=== PATIENT | female | born 1985 | race Caucasian/White ===

== ENCOUNTER 2023-03-29 10:35 | Outpatient (AMB) | payer MEDICARE, MEDICAID, SELFPAY ==
--- NOTE | 2023-03-29 10:45 | MHC.OFFVIS ---
Intake Vital Signs 03/29/23 10:49 Height 5 ft 5 in Weight 463 lb BMI 77.0 BP 143/96 H Blood Pressure Location Rt radial Position Sitting Respiration 20 Pulse 93 Pulse Source Pulse Oximeter Pulse Oximetry (%) 97 Oxygen Delivery Method Room Air Intake Visit Reasons: Low Back Pain, Unspecified - Confirmed Allergies acetaminophen [From Vicodin] Adverse Reaction (Severe, Verified 03/14/23 17:28) Vomiting bee pollen Adverse Reaction (Severe, Verified 03/14/23 17:28) Anaphylaxis buprenorphine [From Subutex] Adverse Reaction (Severe, Verified 03/14/23 17:28) Vomiting hydrocodone [From Vicodin] Adverse Reaction (Severe, Verified 03/14/23 17:28) Vomiting naloxone [From Suboxone] Adverse Reaction (Severe, Verified 03/14/23 17:28) Vomiting shellfish derived Adverse Reaction (Severe, Verified 03/14/23 17:28) Unknown tree nut Adverse Reaction (Severe, Verified 03/14/23 17:28) Anaphylaxis venom-honey bee Adverse Reaction (Severe, Verified 03/14/23 17:28) Anaphylaxis HPI HPI Comments History of Present Illness Details Linda is a very pleasant 29-year-old female who presents to the office today for evaluation management of her chronic lower back pain. She reports she has she has been suffering with pain to her lower back for many years. 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 She has been taking oxycodone extended-release and Lyrica for pain. Pain is not well controlled, she used to be on immediate release oxycodone but was admittedly overusing therefore her doctor discontinued it and declines to restart her on it. She declines use of topical medications or muscle relaxers. She is unable to use nonsteroidal anti-inflammatory medications due to current use of Eliquis for DVT prophylaxis. Patient will be starting once weekly physical therapy tomorrow. Prior to this she was limited with activity and getting out of bed to commode so she was not able to tolerate physical therapy. She is currently on Ozempic for weight loss, weight today 463 lbs. Patient planning weight loss surgery, she is currently enrolled in the bariatric program at [facility]. Patient denies any recent imaging of her back. Patient endorses pain across her lower back with spasms. Denies radiation of the pain down either leg. Denies red flag symptoms including new loss of bowel, bladder or saddle anesthesia. She also reports numbness aching to both her feet, she is diabetic. She reports numbness pins and needles to the left lower arm. She has not had any nerve conduction studies. Per PCP note patient had elevated EMILIA, she has not been seen by Rheumatology to rule out SLE. Pain today is rated as a 6/10, constant, worse in the mornings, during the day in the evenings. In terms of muscle damage condition is described as aching, spasming, hot, burning, stabbing, sharp, shooting, tiring, cramping, squeezing, numb, throbbing, tingling, pins and needles Pain is negatively impacting patient's enjoyment of life, general activity, mood, normal work, recreational activities, relationship with people, sleep, walking, bathing and dressing. Past medical history significant for DVT currently on Eliquis, depression, chronic pain syndrome, morbid obesity, diabetes, hypothyroid, mixed hyperlipidemia, anemia, anxiety, chronic use of opioid medications. [facility] Medical History (Updated 03/29/23 @ 14:27 by Lindsey Ac, LUMBER TRIMMER, UNDERWRITING SALES REPRESENTATIVE) Chronic [id number] syndrome Muscle spasms of neck Allergic rhinitis with asthma without status asthmaticus Opioid dependence Panic disorder with agoraphobia and severe panic attacks Organic sleep apnea Chronic pain syndrome Constipation Cervical paraspinal muscle spasm Recurrent major depressive episodes Mixed hyperlipidemia Bee sting-induced anaphylaxis Rhinitis due to pollen Bronchitis Fracture of tooth Cramps of lower extremity Diabetes mellitus Anemia Low back pain, unspecified Other specified abnormal immunological findings in serum Type 2 diabetes mellitus without complications Other chronic pain Obesity Anxiety Asthma Long-term current use of opiate analgesic Hypothyroidism, unspecified Review of Systems Const All systems reviewed & are unremarkable except as noted in HPI and below Physical Exam Vital Signs: Last Vital Signs Pulse 93 03/29/23 10:49 Resp 20 03/29/23 10:49 BP 143/96 H 03/29/23 10:49 Pulse Ox 97 03/29/23 10:49 Oxygen Delivery Method Room Air 03/29/23 10:49 BMI result Body Mass Index 77.0 General: awake, alert, oriented. Answers questions appropriately. Fully engaged in examination. Obese. Skin: warm, dry, intact HEENT: Normocephalic. Hearing intact. Cardiac: External chest normal in appearance. Respiratory: No cough, audible wheezing or stridor. Abdomen: without gross distension. MS: No obvious swelling or deformities. Able to transition from sit to stand unassisted. Ambulates with bilaterally normal heel strike and toe off Tender to palpation lumbar paraspinal muscles and midline lumbar vertebrae SLR with and without dorsiflexion negative bilaterally Spurling positive bilateral Provocative testing limited secondary to body habitus Neurological: Oriented to person, place, time and situation. Thought process intact. Psychiatric: Appropriate mood and affect. Good judgment and insight. Assessment & Plan Assessment & Plan (1) Lumbar spondylosis: Code(s): M47.816 - Spondylosis without myelopathy or radiculopathy, lumbar region (2) Lumbar paraspinal muscle spasm: Code(s): M62.830 - Muscle spasm of back (3) Peripheral neuropathy: Comment: Bilateral Code(s): G62.9 - Polyneuropathy, unspecified (4) Paresthesia of left arm: Code(s): R20.2 - Paresthesia of skin (5) Chronic pain syndrome: Code(s): G89.4 - Chronic pain syndrome Plan Linda is a very pleasant 37-year-old female who presented to the office today for evaluation management of her chronic lower back pain. History, physical exam and provocative testing consistent with lumbar spondylosis without radiculopathy or myelopathy. Provocative testing was limited secondary to patient's physical limitations. X-ray lumbar spine ordered for further evaluation. To complete before next visit. EMG ordered to evaluate for left arm and bilateral lower extremity peripheral paresthesia/neuropathy. Referral placed to rheumatology for evaluation management of her polyarthropathy. History of elevated EMILIA, concern for SLE. Continue with weight loss journey. Continue with plan for bariatric surgery. Continue with plan for physical therapy. Baclofen 5 mg p.o. b.i.d. as needed for muscle spasms. Lidocaine 5% topical patches as prescribed. Follow-up in the office in 1 month to evaluate effectiveness of muscle relaxers with physical therapy and review of imaging. Discussed options for treatment including diagnostic testing, therapeutic injections, peripheral nerve stimulator, RFA and more permanent neuromodulation. Call has been placed to determine weight limit of procedure bed prior to booking any interventional procedures. Patient will follow-up to further discuss after trial of physical therapy and muscle relaxers. If she does not find any relief with these will plan for bilateral diagnostic L3-L4 DRL5 MBBs with local anesthetic providing bed can accommodate her weight. All questions an concerns have been answered, patient agrees with the plan. Follow-up in 1 month, sooner if needed. Orders: Orders XR lumbar spine 4V min Today M47.816 - Spondylosis without myelopathy or radiculopathy, lumbar region, M54.50 - Low back pain, unspecified NE electromyogram (EMG) Today G62.9 - Polyneuropathy, unspecified, R20.2 - Paresthesia of skin Referrals Rheumatology Referral M25.50 - Pain in unspecified joint Medications: New baclofen 5 mg PO BID 60 tabs 0RF lidocaine 5% leave on most painful area for up to 12 hrs 2 patches topical DAILY 60 ea 3RF Coding Level of Care Code New Pt Level 4 (06267) Diagnoses Lumbar spondylosis M47.816 Lumbar paraspinal muscle spasm M62.830 Peripheral neuropathy G62.9 Paresthesia of left arm R20.2 Chronic pain syndrome G89.4
[2023-03-29 10:49] VITALS: BP 143/96; PULSE 93; RESP 20; O2SAT 97; BMI 77.0
== END 2023-03-29 11:38 | disposition home or self-care (01) ==
PROVIDERS: PCP Nurse Practitioner Family; Referring Provider Nurse Practitioner Family; Visit Provider Registered Nurse Emergency
DX: M47.816 Spondylosis without myelopathy or radiculopathy, lumbar region (principal); M62.830 Muscle spasm of back; G62.9 Polyneuropathy, unspecified; R20.2 Paresthesia of skin; G89.4 Chronic pain syndrome
CPT/HCPCS: 99204

== ENCOUNTER → 2023-03-29 10:35 | Outpatient (BNVA) | payer MEDICARE, MEDICAID, SELFPAY | PROVIDERS: PCP Nurse Practitioner Family; Referring Provider Nurse Practitioner Family; Visit Provider Registered Nurse Emergency | DX: M47.816 Spondylosis without myelopathy or radiculopathy, lumbar region (principal); M62.830 Muscle spasm of back; G62.9 Polyneuropathy, unspecified; R20.2 Paresthesia of skin; G89.4 Chronic pain syndrome | CPT/HCPCS: 99202 ==

== ENCOUNTER 2023-05-04 11:06 | Outpatient (REF) | payer MEDICARE, MEDICAID, SELFPAY ==
--- NOTE | 2023-05-04 11:10 | EMG_ITS ---
Chief complaint: Paresthesias on both feet and left hand History of prolonged hospitalization due to COVID, diabetes, DVT on Eliquis Reason for referral: Evaluate for neuropathy Referred by: Lindsey Ac NP Procedure done: Bilateral lower extremity and left upper extremity NCS/EMG Precautions and/or limitations: Patient on Eliquis, deferred deep muscles such as paraspinals. Technical difficulties during NCS due to habitus. The limb temperature was monitored continuously and remained between 32-36 degrees C during the performance of the NCS. Nerve Conduction Studies Anti Sensory Summary Table ?Stim Site NR Onset (ms) Norm Onset (ms) Peak (ms) Norm Peak (ms) O-P Amp (?V) Norm O-P Amp Site1 Site2 Delta-0 (ms) Dist (cm) Navneet (m/s) Norm Navneet (m/s) Left Median Anti Sensory (2nd Digit) Wrist ? 2.5 3.3 <3.6 0.8 >10 Wrist 2nd Digit 2.5 14.0 56 Left Radial Anti Sensory (Thumb) Forearm ? 2.6 3.0 <3.1 4.6 Forearm Thumb 2.6 0.0 Left Sural Anti Sensory (Lat Mall) Calf NR <4.0 >5.0 Calf Lat Mall 14.0 Right Sural Anti Sensory (Lat Mall) Calf NR <4.0 >5.0 Calf Lat Mall 14.0 Left Ulnar Anti Sensory (5th Digit) Wrist ? 2.5 3.5 <3.7 11.3 >15.0 Wrist 5th Digit 2.5 14.0 56 Motor Summary Table ?Stim Site NR Onset (ms) Norm Onset (ms) O-P Amp (mV) Norm O-P Amp iAmp (mV) Amp (1st) (%) Site1 Site2 Delta-0 (ms) Dist (cm) Navneet (m/s) Norm Navneet (m/s) Left Median Motor (Abd Poll Brev) Wrist ? 3.7 <3.9 15.7 >4.5 18.3 100.0 Elbow Wrist 4.7 21.0 45 >45 Elbow ? 8.4 14.7 17.2 93.6 Left Peroneal Motor (Ext Dig Brev) Ankle NR <4.0 >2.5 Ankle Ext Dig Brev 0.0 B Fib NR B Fib Ankle 0.0 >40 Right Peroneal Motor (Ext Dig Brev) Ankle NR <4.0 >2.5 Ankle Ext Dig Brev 0.0 Right Peroneal TA Motor (Tib Ant) Fib Head ? 4.5 <4.2 1.9 2.3 100.0 Fib Head Tib Ant 4.5 0.0 Poplit NR <5.7 Poplit Fib Head 0.0 >40.5 Left Tibial Motor (Abd Richey Brev) Ankle ? 5.6 <5 2.6 >2.5 2.7 100.0 Ankle Abd Richey Brev 5.6 0.0 Knee ? 16.5 1.2 1.4 46.2 Knee Ankle 10.9 49.0 45 >40 Right Tibial Motor (Abd Richey Brev) Ankle ? 6.7 <5 2.7 >2.5 2.9 100.0 Ankle Abd Richey Brev 6.7 0.0 Knee NR Knee Ankle 0.0 >40 Left Ulnar Motor (Abd Dig Minimi) Wrist ? 2.8 <3.0 10.8 >5 12.3 100.0 B Elbow Wrist 3.7 17.0 46 >45 B Elbow ? 6.5 9.9 11.7 91.7 A Elbow B Elbow 2.1 10.0 48 >45 A Elbow ? 8.6 9.2 10.8 85.2 EMG ?Side Muscle Nerve Root Ins Act Fibs Psw Amp Dur Poly Recrt Int Pat Comment Left 1stDorInt Ulnar C8-T1 Nml Nml Nml Nml Nml 0 Nml Complete Left FlexCarRad Median C6-7 Nml Nml Nml Nml Nml 0 Nml Complete Left Biceps Musculocut C5-6 Nml Nml Nml Nml Nml 0 Nml Complete Left Triceps Radial C6-7-8 Nml Nml Nml Nml Nml 0 Nml Complete Left Deltoid Axillary C5-6 Nml Nml Nml Nml Nml 0 Nml Complete Right AbdHallucis MedPlantar S1-2 Nml Nml Nml Nml Nml 0 Nml Complete Right AntTibialis Dp Br Peron L4-5 Nml Nml Nml Nml Nml 0 Nml Complete Right MedGastroc Tibial S1-2 Nml Nml Nml Nml Nml 0 Nml Complete Right VastusMed Femoral L2-4 Nml Nml Nml Nml Nml 0 Nml Complete Right Peroneus Long Sup Br Peron L5-S1 Nml Nml Nml Nml Nml 0 Nml Complete Left AbdHallucis MedPlantar S1-2 Incr 1+ Nml Nml Nml 0 Nml Complete Left AntTibialis Dp Br Peron L4-5 Nml Nml Nml Nml Nml 0 Nml Complete Left MedGastroc Tibial S1-2 Nml Nml Nml Nml Nml 0 Nml Complete Left VastusMed Femoral L2-4 Nml Nml Nml Nml Nml 0 Nml Complete Left Peroneus Long Sup Br Peron L5-S1 Nml Nml Nml Nml Nml 0 Nml Complete FINDINGS: Could not obtain responses from right peroneal nerve, recording EDB muscle. When recording TA muscle, small amplitude seen distally and could not obtain response proximally. Right tibial nerve showed small amplitude distally and prolonged distal latency; but could not obtain proximally. Could not obtain responses from left peroneal nerve. Left tibial nerve showed small amplitudes, prolonged distal latency, but normal conduction velocity. Question presence of temporal dispersion. Could not obtain responses from bilateral sural nerves. Left median sensory nerve and ulnar sensory nerve both showed normal peak latencies but small amplitude. All other nerves tested on left upper extremity were within normal. Concentric needle EMG was performed in selected muscles of the bilateral lower extremity and left upper extremity. Study revealed signs of electric abnormalities as shown in the table below. Left AH showed increased insertional activity, PSWs and fibrillations. No other denervation seen on more proximal muscles. IMPRESSION: 1. This is an abnormal study. 2. There is electrodiagnostic findings suggestive for distal symmetric sensorimotor polyneuropathy, axonal and demyelinating features. 3. There is no definite electrodiagnostic evidence for median neuropathy, ulnar neuropathy, brachial plexopathy, or cervical radiculopathy on left upper extremity; or lumbar plexopathy or radiculopathy on lower extremities. 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 Thank you for your kind referral. Fatoumata Brar MD, ADDY Board Certified, [place] Board of Physical Medicine and Rehabilitation (ABPMR) Board Certified, [place] Board of Electrodiagnostic Medicine (ABEM) CODIN [id number] x [address] [facility]
== END 2023-05-04 11:07 | disposition home or self-care (01) ==
LOC: HO.NEURO 11:06
PROVIDERS: PCP Nurse Practitioner Family; Visit Provider Registered Nurse Emergency
DX: R20.2 Paresthesia of skin (principal); G62.9 Polyneuropathy, unspecified
CPT/HCPCS: 95886; 95912

== ENCOUNTER → 2023-05-04 11:10 | Outpatient (BNV) | payer MEDICARE, MEDICAID, SELFPAY | PROVIDERS: PCP Nurse Practitioner Family; Visit Provider Physical Medicine & Rehabilitation | DX: G62.89 Other specified polyneuropathies (principal); M79.671 Pain in right foot; M79.672 Pain in left foot; M79.642 Pain in left hand | CPT/HCPCS: 95886; 95912 ==

== ENCOUNTER 2023-05-08 10:48 | Outpatient (REF) | payer MEDICARE, MEDICAID, SELFPAY ==
--- NOTE | ~2023-05-08 | XR_ITS ---
EXAMINATION: XR lumbar spine 4V min CLINICAL INFORMATION: Reason for Exam M47.816 - Spondylosis without myelopathy or radiculopathy, lumbar region COMPARISON: None TECHNIQUE: 5 views of the lumbar spine FINDINGS: 5 nonrib-bearing lumbar-type vertebral bodies. Vertebral body heights are maintained. Alignment is maintained. Minimal degenerative change and small anterior disc osteophyte complexes. Disc space heights are maintained. Paravertebral soft tissues are unremarkable. XR/XR lumbar spine 4V min IMPRESSION: Mild spondylosis of the lumbar spine, as above detailed.
== END 2023-05-08 10:49 | disposition home or self-care (01) ==
LOC: HO.XRAY 10:48
PROVIDERS: PCP Nurse Practitioner Family; Visit Provider Registered Nurse Emergency
DX: M47.816 Spondylosis without myelopathy or radiculopathy, lumbar region (principal); M54.50 Low back pain, unspecified
CPT/HCPCS: 72110

== ENCOUNTER 2023-05-10 10:50 | Outpatient (AMB) | payer MEDICARE, MEDICAID, SELFPAY ==
[2023-05-10 10:57] VITALS: BP 160/56; PULSE 87; O2SAT 96; BMI 73.9
--- NOTE | 2023-05-10 10:57 | A.OFFVIS_ITS ---
Intake Vital Signs 05/10/23 10:57 Height 5 ft 5 in Weight 444 lb BMI 73.9 BP 160/56 H Blood Pressure Location Rt brachial Position Sitting Pulse 87 Pulse Source Pulse Oximeter Pulse Oximetry (%) 96 Oxygen Delivery Method Room Air Intake Visit Reasons: 1 Month Follow Up Intake Note: Pain today 09/04 Electrical And Instrument Mechanic Required: No Accompanied by: Other Relationship Allergies acetaminophen [From Vicodin] Adverse Reaction (Severe, Verified 05/10/23 10:58) Vomiting bee pollen Adverse Reaction (Severe, Verified 05/10/23 10:58) Anaphylaxis buprenorphine [From Subutex] Adverse Reaction (Severe, Verified 05/10/23 10:58) Vomiting hydrocodone [From Vicodin] Adverse Reaction (Severe, Verified 05/10/23 10:58) Vomiting naloxone [From Suboxone] Adverse Reaction (Severe, Verified 05/10/23 10:58) Vomiting shellfish derived Adverse Reaction (Severe, Verified 05/10/23 10:58) Unknown tree nut Adverse Reaction (Severe, Verified 05/10/23 10:58) Anaphylaxis venom-honey bee Adverse Reaction (Severe, Verified 05/10/23 10:58) Anaphylaxis HPI HPI Comments History of Present Illness Details Linda presents back to the office today for follow-up chronic back pain. Recent EMG reviewed, results as per below Patient completed x-ray 2 days ago of her lumbar spine, results pending She reports less frequent muscle spasms starting on the baclofen, she does report that there are times throughout the day that the spasms are worse, taking baclofen only twice daily. Physical therapy recently started, that is going well she is now able to get up and ambulate for 5 minutes. Feeling positive about this improvement Continues with her chronic opioid medication helping to discuss with her prescriber about adjusting doses or adding medication for ?breakthrough pain? Has appointment next week with rheumatology She has been given the approval for gastric bypass surgery. She has awaiting a call to schedule a day. Hoping that after weight lost surgery her back pain will improve. Still taking Ozempic and has lost 20 lb since her visit here 1 month ago Prior: Linda is a very pleasant 29-year-old female who presents to the office today for evaluation management of her chronic lower back pain. She reports she has she has been suffering with pain to her lower back for many years. 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 She has been taking oxycodone extended-release and Lyrica for pain. Pain is not well controlled, she used to be on immediate release oxycodone but was admittedly overusing therefore her doctor discontinued it and declines to restart her on it. She declines use of topical medications or muscle relaxers. She is unable to use nonsteroidal anti-inflammatory medications due to current use of Eliquis for DVT prophylaxis. Patient will be starting once weekly physical therapy tomorrow. Prior to this she was limited with activity and getting out of bed to commode so she was not able to tolerate physical therapy. She is currently on Ozempic for weight loss, weight today 463 lbs. Patient planning weight loss surgery, she is currently enrolled in the bariatric program at [facility]. Patient denies any recent imaging of her back. Patient endorses pain across her lower back with spasms. Denies radiation of the pain down either leg. Denies red flag symptoms including new loss of bowel, bladder or saddle anesthesia. She also reports numbness aching to both her feet, she is diabetic. She reports numbness pins and needles to the left lower arm. She has not had any nerve conduction studies. Per PCP note patient had elevated EMILIA, she has not been seen by Rheumatology to rule out SLE. Pain today is rated as a 6/10, constant, worse in the mornings, during the day in the evenings. In terms of muscle damage condition is described as aching, spasming, hot, burning, stabbing, sharp, shooting, tiring, cramping, squeezing, numb, throbbing, tingling, pins and needles Pain is negatively impacting patient's enjoyment of life, general activity, mood, normal work, recreational activities, relationship with people, sleep, walking, bathing and dressing. Past medical history significant for DVT currently on Eliquis, depression, chronic pain syndrome, morbid obesity, diabetes, hypothyroid, mixed hyperlipidemia, anemia, anxiety, chronic use of opioid medications. [facility] Medical History (Updated 03/29/23 @ 14:27 by Lindsey Ac, BUNCHER MACHINE, TENT WORKER) Chronic [id number] syndrome Muscle spasms of neck Allergic rhinitis with asthma without status asthmaticus Opioid dependence Panic disorder with agoraphobia and severe panic attacks Organic sleep apnea Chronic pain syndrome Constipation Cervical paraspinal muscle spasm Recurrent major depressive episodes Mixed hyperlipidemia Bee sting-induced anaphylaxis Rhinitis due to pollen Bronchitis Fracture of tooth Cramps of lower extremity Diabetes mellitus Anemia Low back pain, unspecified Other specified abnormal immunological findings in serum Type 2 diabetes mellitus without complications Other chronic pain Obesity Anxiety Asthma Long-term current use of opiate analgesic Hypothyroidism, unspecified Review of Systems Const All systems reviewed & are unremarkable except as noted in HPI and below Physical Exam Vital Signs: Last Vital Signs Pulse 87 05/10/23 10:57 BP 160/56 H 05/10/23 10:57 Pulse Ox 96 05/10/23 10:57 Oxygen Delivery Method Room Air 05/10/23 10:57 BMI result Body Mass Index 73.9 General: awake, alert, oriented. Answers questions appropriately. Fully engaged in examination. Obese. Skin: warm, dry, intact HEENT: Normocephalic. Hearing intact. Cardiac: External chest normal in appearance. Respiratory: No cough, audible wheezing or stridor. Abdomen: without gross distension. MS: No obvious swelling or deformities. Able to transition from sit to stand unassisted. Utilizing a wheelchair Neurological: Oriented to person, place, time and situation. Thought process intact. Psychiatric: Appropriate mood and affect. Good judgment and insight. Results Reviewed Results Reviewed: 05/04/2023 EMG FINDINGS: Could not obtain responses from right peroneal nerve, recording EDB muscle. When recording TA muscle, small amplitude seen distally and could not obtain response proximally. Right tibial nerve showed small amplitude distally and prolonged distal latency; but could not obtain proximally. Could not obtain responses from left peroneal nerve. Left tibial nerve showed small amplitudes, prolonged distal latency, but normal conduction velocity. Question presence of temporal dispersion. Could not obtain responses from bilateral sural nerves. Left median sensory nerve and ulnar sensory nerve both showed normal peak latencies but small amplitude. All other nerves tested on left upper extremity were within normal. Concentric needle EMG was performed in selected muscles of the bilateral lower extremity and left upper extremity. Study revealed signs of electric abnormalities as shown in the table below. Left AH showed increased insertional activity, PSWs and fibrillations. No other denervation seen on more proximal muscles. IMPRESSION: 1. This is an abnormal study. 2. There is electrodiagnostic findings suggestive for distal symmetric sensorimotor polyneuropathy, axonal and demyelinating features. 3. There is no definite electrodiagnostic evidence for median neuropathy, ulnar neuropathy, brachial plexopathy, or cervical radiculopathy on left upper extremity; or lumbar plexopathy or radiculopathy on lower extremities. 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 Assessment & Plan Assessment & Plan (1) Lumbar spondylosis: Code(s): M47.816 - Spondylosis without myelopathy or radiculopathy, lumbar region (2) Lumbar paraspinal muscle spasm: Code(s): M62.830 - Muscle spasm of back (3) Peripheral neuropathy: Comment: Bilateral Code(s): G62.9 - Polyneuropathy, unspecified (4) Paresthesia of left arm: Code(s): R20.2 - Paresthesia of skin (5) Chronic pain syndrome: Code(s): G89.4 - Chronic pain syndrome Plan Linda is a very pleasant 37-year-old female who presented to the office today for follow-up EMG reviewed, results as per above. X-ray results pending. History, physical exam and provocative testing consistent with lumbar spondylosis without radiculopathy or myelopathy. . Continue with weight loss journey and plan for bariatric surgery, pending surgery date. Continue with physical therapy. Increase baclofen to 5mg p.o. 3 times daily as needed for muscle spasms Discussed options for treatment including diagnostic testing, therapeutic injections, peripheral nerve stimulator, RFA and more permanent neuromodulation. Given patient's will be having bariatric surgery in the next couple of months will hold off on any interventional options at this time. She does not want surgery to be potentially delayed by any procedures performed here. All questions an concerns have been answered, patient agrees with the plan. Follow-up in 3 months, sooner if needed. Medications: Changed From baclofen 5 mg PO BID 60 tabs 0RF To baclofen 5 mg PO Q8H 90 tabs 2RF Coding Level of Care Code Est Pt Level 4 (08004) Diagnoses Lumbar spondylosis M47.816 Lumbar paraspinal muscle spasm M62.830 Peripheral neuropathy G62.9 Paresthesia of left arm R20.2 Chronic pain syndrome G89.4
== END 2023-05-10 12:03 | disposition home or self-care (01) ==
PROVIDERS: PCP Nurse Practitioner Family; Visit Provider Registered Nurse Emergency
DX: M47.816 Spondylosis without myelopathy or radiculopathy, lumbar region (principal); M62.830 Muscle spasm of back; G62.9 Polyneuropathy, unspecified; R20.2 Paresthesia of skin; G89.4 Chronic pain syndrome
CPT/HCPCS: 99214

== ENCOUNTER → 2023-05-10 10:50 | Outpatient (BNVA) | payer MEDICARE, MEDICAID, SELFPAY | PROVIDERS: PCP Nurse Practitioner Family; Visit Provider Registered Nurse Emergency | DX: M47.816 Spondylosis without myelopathy or radiculopathy, lumbar region (principal); M62.830 Muscle spasm of back; G62.9 Polyneuropathy, unspecified; R20.2 Paresthesia of skin; G89.4 Chronic pain syndrome | CPT/HCPCS: 99212 ==

== ENCOUNTER 2023-05-18 13:36 | Outpatient (REF) | payer MEDICARE, MEDICAID, SELFPAY ==
[2023-05-18 15:08] LABS: MANUAL DIFF FLAG NO
[2023-05-18 15:39] LABS: Basophils Absolute Auto 0.1 X10*3/uL (0.0-0.2); Basophils Percent Auto 0.3 % (0-2); Eosinophils Absolute Auto 0.3 X10*3/uL (0.0-0.4); Eosinophils Percent Auto 1.8 % (0-4); Hematocrit 44.1 % (37.0-47.0); Imm Gran Abs Auto 0.15 X10*3/uL (0.00-0.03); Lymphocytes Absolute Auto 3.1 X10*3/uL (1.2-4.9); Lymphocytes Percent Auto 21.7 % (20-40); Mean Corpuscular HGB Conc 31.7 g/dl (31.0-35.0); Mean Corpuscular Hemoglobin 25.1 pg (27.0-33.0); Mean Platelet Volume 9.4 fL (9.4-12.3); Neutrophils Absolute Auto 9.8 x10*3/uL (2.0-8.3); Neutrophils Percent Auto 68.2 % (45-73); Platelet Count 241 X10*3/uL (160-400); Red Blood Count 5.58 X10*6/uL (4.20-5.50); Red Cell Distribution Width 17.2 % (11.0-16.0); White Blood Count 14.4 X10*3/uL (4.8-10.8)
[2023-05-18 16:36] LABS: Erythrocyte Sedimentation Rate 22 MM/HR (0-20)
[2023-05-18 17:07] LABS: Alanine Aminotransferase 20 U/L (0-31); Albumin Level 4.2 g/dL (3.5-5.0); Alkaline Phosphatase 57 U/L (39-117); Anion Gap 16 (12-20); Aspartate Amino Transferase 12 U/L (5-31); Bilirubin Total 0.4 mg/dL (0.0-1.0); Blood Urea Nitrogen 19 mg/dL (9-16); C Reactive Protein 1.02 mg/dL (< or = 0.50); Calcium 9.1 mg/dL (8.4-10.2); Carbon Dioxide 23 mmol/L (22-29); Chloride 105 mmol/L (96-108); Estimated Glomerular Filt Rate > 60; Glucose Random 86 mg/dL (60-115); Potassium 3.7 mmol/L (3.3-5.1); Sodium 140 mmol/L (135-145); Total Protein 7.6 g/dL (6.5-8.0); Uric Acid 7.1 mg/dL (2.4-5.7)
[2023-05-21 10:28] LABS: Complement C3 179 mg/dL (83-193)
[2023-05-21 20:34] LABS: Prot Elec - Albumin 3.9 g/dL (3.8-4.8); Prot Elec - Alpha1 0.3 g/dL (0.2-0.3); Prot Elec - Alpha2 0.8 g/dL (0.5-0.9); Prot Elec - Beta 1 0.5 g/dL (0.4-0.6); Prot Elec - Beta 2 0.4 g/dL (0.2-0.5); Prot Elec - Gamma 1.1 g/dL (0.8-1.7)
[2023-05-21 22:24] LABS: Anti DNA DS Antibody <1 IU/mL; Antibody to SS-A Antigen <1.0 NEG AI (<1.0 NEG); Antibody to SS-B Antigen <1.0 NEG AI (<1.0 NEG); SM/Ribonucleoprotein Ab <1.0 NEG AI (<1.0 NEG); Scleroderma 70 Antibody 1.8 POS AI (<1.0 NEG); Smith Protein <1.0 NEG AI (<1.0 NEG)
[2023-05-22 12:13] LABS: Anti Nuclear Antibody Pattern Nuclear, Speckled; Anti Nuclear Antibody Screen POSITIVE (NEGATIVE)
[2023-05-23 11:59] LABS: IgA 331 mg/dL (47-310); IgG 1169 mg/dL (600-1640); IgM 105 mg/dL (50-300)
== END 2023-05-18 13:37 | disposition home or self-care (01) ==
LOC: HO.LAB 13:36
PROVIDERS: PCP Nurse Practitioner Family; Visit Provider Nurse Practitioner Family
DX: G89.4 Chronic pain syndrome (principal); M25.50 Pain in unspecified joint; E66.01 Morbid (severe) obesity due to excess calories
CPT/HCPCS: 36415; 80053; 82550; 82784; 84165; 84550; 85025; 85652; 86038; 86039; 86140; 86160; 86225; 86235; 86334; 99202

== ENCOUNTER 2023-05-18 13:36 | Outpatient (AMB) | payer MEDICARE, MEDICAID, SELFPAY ==
--- NOTE | 2023-05-18 13:41 | A.OFFVIS_ITS ---
Intake Vital Signs 05/18/23 13:44 Height 5 ft 5 in Weight 444 lb BMI 73.9 BP 130/60 Blood Pressure Location Rt radial Position Sitting Pulse 80 Pulse Source Pulse Oximeter Pulse Oximetry (%) 98 Oxygen Delivery Method Room Air Intake Visit Reasons: Joint pain/COFIRMED Intake Note: New patient, internally referred, presents to office today for joint pain. Reports generalized myalgias s/p Covid 2020. Has tried: Pain mngt, PT, OT, oral meds, bed exercises. Body Shop Technician Required: No Accompanied by: Sister Allergies acetaminophen [From Vicodin] Adverse Reaction (Severe, Verified 05/18/23 13:41) Vomiting bee pollen Adverse Reaction (Severe, Verified 05/18/23 13:41) Anaphylaxis buprenorphine [From Subutex] Adverse Reaction (Severe, Verified 05/18/23 13:41) Vomiting hydrocodone [From Vicodin] Adverse Reaction (Severe, Verified 05/18/23 13:41) Vomiting naloxone [From Suboxone] Adverse Reaction (Severe, Verified 05/18/23 13:41) Vomiting shellfish derived Adverse Reaction (Severe, Verified 05/18/23 13:41) Unknown tree nut Adverse Reaction (Severe, Verified 05/18/23 13:41) Anaphylaxis venom-honey bee Adverse Reaction (Severe, Verified 05/18/23 13:41) Anaphylaxis HPI HPI Comments History of Present Illness Details Linda 37-year-old female presents to the today for initial evaluation positive EMILIA, multiple joint pain she was referred by primary care. She is accompanied by her sister Magaly. She has a H type 2 diabetes, morbid obesity (73.9 BMI), That since her episode of COVID infection 2 years ago she she has been experiencing muscle and joint pain. She denies red warm swollen joints, uveitis, plantar fasciitis, rashes. She does currently have fungal rash treated with nystatin under breast and skin folds. She has had bouts with lymphedema, an episode of blood clot unrelated . The patient also denies sun sensitivity, GI and urinary issues, chronic fevers. She denies dry eyes and dry mouth and may have some sun sensitivity whereby she overheats in the sun. She may possibly experience Raynaud's. She is currently on 20 mg of prednisone daily for asthma but does not find that it helps her joints and muscles feel. Pain management visit Linda presents back to the office today for follow-up chronic back pain. Recent EMG reviewed, results as per below Patient completed x-ray 2 days ago of her lumbar spine, results pending She reports less frequent muscle spasms starting on the baclofen, she does report that there are times throughout the day that the spasms are worse, taking baclofen only twice daily. Physical therapy recently started, that is going well she is now able to get up and ambulate for 5 minutes. Feeling positive about this improvement Continues with her chronic opioid medication helping to discuss with her prescriber about adjusting doses or adding medication for ?breakthrough pain? Has appointment next week with rheumatology She has been given the approval for gastric bypass surgery. She has awaiting a call to schedule a day. Hoping that after weight lost surgery her back pain will improve. Still taking Ozempic and has lost 20 lb since her visit here 1 month ago Prior: Linda is a very pleasant 29-year-old female who presents to the office today for evaluation management of her chronic lower back pain. She reports she has she has been suffering with pain to her lower back for many years. 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 She has been taking oxycodone extended-release and Lyrica for pain. Pain is not well controlled, she used to be on immediate release oxycodone but was admittedly overusing therefore her doctor discontinued it and declines to restart her on it. She declines use of topical medications or muscle relaxers. She is unable to use nonsteroidal anti-inflammatory medications due to current use of Eliquis for DVT prophylaxis. Patient will be starting once weekly physical therapy tomorrow. Prior to this she was limited with activity and getting out of bed to commode so she was not able to tolerate physical therapy. She is currently on Ozempic for weight loss, weight today 463 lbs. Patient planning weight loss surgery, she is currently enrolled in the bariatric program at [facility]. Patient denies any recent imaging of her back. Patient endorses pain across her lower back with spasms. Denies radiation of the pain down either leg. Denies red flag symptoms including new loss of bowel, bladder or saddle anesthesia. She also reports numbness aching to both her feet, she is diabetic. She reports numbness pins and needles to the left lower arm. She has not had any nerve conduction studies. Per PCP note patient had elevated EMILIA, she has not been seen by Rheumatology to rule out SLE. Pain today is rated as a 6/10, constant, worse in the mornings, during the day in the evenings. In terms of muscle damage condition is described as aching, spasming, hot, burning, stabbing, sharp, shooting, tiring, cramping, squeezing, numb, throbbing, tingling, pins and needles Pain is negatively impacting patient's enjoyment of life, general activity, mood, normal work, recreational activities, relationship with people, sleep, walking, bathing and dressing. Past medical history significant for DVT currently on Eliquis, depression, chronic pain syndrome, morbid obesity, diabetes, hypothyroid, mixed hyperlipidemia, anemia, anxiety, chronic use of opioid medications. 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 Muscle spasms of neck Allergic rhinitis with asthma without status asthmaticus Opioid dependence Panic disorder with agoraphobia and severe panic attacks Organic sleep apnea Chronic pain syndrome Constipation Cervical paraspinal muscle spasm Recurrent major depressive episodes Mixed hyperlipidemia Bee sting-induced anaphylaxis Rhinitis due to pollen Bronchitis Fracture of tooth Cramps of lower extremity Diabetes mellitus Anemia Low back pain, unspecified Other specified abnormal immunological findings in serum Type 2 diabetes mellitus without complications Other chronic pain Obesity Anxiety Asthma Long-term current use of opiate analgesic Hypothyroidism, unspecified Family History (Updated 05/18/23 @ 13:52 by ZAHRA Mendez) Mother Arthritis Maternal Grandmother Arthritis Social History (Updated 05/18/23 @ 13:56 by ZAHRA Mendez) Household Members: Significant Other and Children Alcohol intake: never Patient Tobacco Use Status: Former Tobacco user Quit Date: 8 yrs ago e-Cigarette/Vaping Use: Currently Using Substance Use Type: Marijuana Current occupational status: unemployed and disabled Female Reproductive History Menstrual Total pregnancies: 3 Ab induced: 1 Physical Exam Vital Signs: Last Vital Signs Pulse 80 05/18/23 13:44 BP 130/60 05/18/23 13:44 Pulse Ox 98 05/18/23 13:44 Oxygen Delivery Method Room Air 05/18/23 13:44 BMI result Body Mass Index 73.9 Vital signs reviewed. Constitutional: Non-toxic appearing. No acute distress. Well-developed and well-nourished. Wheelchair HEENT: Normocephalic and atraumatic. External auditory canals without erythema or edema bilaterally. Moist oral mucous membranes. No pharyngeal erythema or exudates. Skin: Erythematous macule rash with excoriation under breasts and pannus, skin folds Neck: Full and painless range of motion. No cervical lymphadenopathy. Cardio: Regular rate and rhythm. No murmurs, gallops, or rubs. No lower extremity edema. No JVD. Pulmonary: No respiratory distress. No accessory muscle usage. Musculoskeletal: Limited exam given body habitus. Generalized Decreased range of motion in joints throughout the body given body habitus No deformity or other signs of injury. Neuro: Alert and oriented x4. Cranial nerves 2-12 grossly intact. No focal deficits appreciated. Results Reviewed Results Reviewed: Patient: Linda Joaquin MR#: [id number] : 1985 Acct:[id number] Age/Sex: 37 / F ADM Date: 05/08/23 Loc: [facility] Attending Dr: Lindsey Ac APRN, CNP Ordering Physician: Lindsey Ac APRN, CNP Date of Service: 05/08/23 Procedure(s): XR lumbar spine 4V min Accession Number(s): [id number] cc: Yas Antonio; Lindsey Ac APRN, CNP~ EXAMINATION: XR lumbar spine 4V min CLINICAL INFORMATION: Reason for Exam M47.816 - Spondylosis without myelopathy or radiculopathy, lumbar region COMPARISON: None TECHNIQUE: 5 views of the lumbar spine FINDINGS: 5 nonrib-bearing lumbar-type vertebral bodies. Vertebral body heights are maintained. Alignment is maintained. Minimal degenerative change and small anterior disc osteophyte complexes. Disc space heights are maintained. Paravertebral soft tissues are unremarkable. XR/XR lumbar spine 4V min IMPRESSION: Mild spondylosis of the lumbar spine, as above detailed. Laboratory Tests 05/18/23 15:00 WBC 14.4 H RBC 5.58 H Hgb 14.0 Hct 44.1 ESR 22 H Creatinine 1.01 Estimated GFR > 60 Uric Acid 7.1 H AST 12 ALT 20 Alkaline Phosphatase 57 Total Creatine Kinase 32 C-Reactive Protein 1.02 H IgG Total 1169 IgA Total 331 H IgM 105 EMILIA Screen POSITIVE A EMILIA Titer 1:80 H EMILIA Pattern Nuclear, Speckled A SS-A/Ro Antibody <1.0 NEG SS-B/La Antibody <1.0 NEG Sm (Culp) Antibody <1.0 NEG SM/OIL SPRAYING MACHINE OPERATOR IgG Antibody <1.0 NEG Scl-70 Scleroderma Ab 1.8 POS A Double Strand DNA Ab <1 Complement C3 179 Complement C4 33 Assessment & Plan Assessment & Plan (1) Chronic pain syndrome: Code(s): G89.4 - Chronic pain syndrome Plan The patient is here for evaluation of positive EMILIA and joint pain that she reports has worsened since her episode of COVID 2 years. After careful initial review of history, diagnostics and physical exam, I do not hurts see a clinical presentation for connective tissue or inflammatory disease process. Further lab analysis did show elevated uric acid levels of 7.1, and scleroderma 70 positive. Physical examination and oral history did not reveal any findings to support scleroderma onset or gout occurrence. I think at this time we can continue to monitor and follow-up. Discuss connective tissue disease symptoms that patient can look out for and call the office should she have any concerns. Follow-up 4 months I spent 45 minutes reviewing history, evaluating patient and documenting Orders: Orders Erythrocyte Sedimentation Rate 05/18/23 G89.4 - Chronic pain syndrome Complement C3 05/18/23 G89.4 - Chronic pain syndrome Creatine Kinase Total 05/18/23 G89.4 - Chronic pain syndrome Immunoglobulins,IgG IgA IgM 05/18/23 G89.4 - Chronic pain syndrome Scleroderma 70 Antibody 05/18/23 G89.4 - Chronic pain syndrome Protein Electrophoresis, Serum 05/18/23 G89.4 - Chronic pain syndrome Immunofixation Pnl, Serum 05/18/23 G89.4 - Chronic pain syndrome Complement C4 05/18/23 G89.4 - Chronic pain syndrome Complete Blood Count Auto Diff 05/18/2389.4 - Chronic pain syndrome Comprehensive Met. Panel 05/18/23 G89.4 - Chronic pain syndrome C Reactive Protein 05/18/23 G89.4 - Chronic pain syndrome Sjogren's Antibodies 05/18/23 G89.4 - Chronic pain syndrome Uric Acid 05/18/23 G89.4 - Chronic pain syndrome Anti Extractable Nuclear Ag 05/18/23 G89.4 - Chronic pain syndrome Anti DNA DS Antibody 05/18/23 G89.4 - Chronic pain syndrome EMILIA Reflex Titer and Pattern 05/18/23 G89.4 - Chronic pain syndrome Coding Level of Care Code New Pt Level 4 (61618) Diagnoses Chronic pain syndrome G89.4
[2023-05-18 13:44] VITALS: BP 130/60; PULSE 80; O2SAT 98; BMI 73.9
== END 2023-05-18 14:37 | disposition home or self-care (01) ==
PROVIDERS: PCP Nurse Practitioner Family; Visit Provider Nurse Practitioner Family
DX: G89.4 Chronic pain syndrome (principal)
CPT/HCPCS: 99204; 99214